=== PATIENT | female | born 1995 | race African-American/Black ===

== ENCOUNTER 2019-12-08 12:30 | Emergency (ER) | payer SELFPAY ==
--- NOTE | 2019-12-08 14:06 | RAD ---
PA AND LATERAL VIEWS CHEST: HISTORY: Cough, congestion, fever, headache. FINDINGS: The cardiomediastinum is normal. The lungs are well expanded and clear. The bony thorax is normal. IMPRESSION: Normal exam. POS: OFF
== END 2019-12-08 14:20 | disposition home or self-care (01) ==
LOC: ERS 12:30
DX: J06.9 Acute upper respiratory infection, unspecified (principal); D64.9 Anemia, unspecified; F41.9 Anxiety disorder, unspecified
CPT/HCPCS: 71046; 87804